=== PATIENT | male | born 1985 | race Caucasian/White ===

== ENCOUNTER 2022-06-19 06:41 | Day surgery (SDC) | payer OTHER ==
[~2022-06-19] VITALS: Ht 188 cm; Wt 100.9 kg
[2022-06-19] MEDS ORDERED: DEXAMETHASONE SOD PHOS 4 MG/ML VIAL IVP ONE (06:42)
[2022-06-19] MEDS ORDERED: ROCURONIUM BROMIDE 10 MG/ML 5 ML VIAL IVP ONE (06:42)
[2022-06-19] MEDS ORDERED: PROPOFOL 1% 20 ML VIAL IVP ONE (06:42)
[2022-06-19] MEDS ORDERED: FentaNYL CITRATE PF 100 MCG/2 ML VIAL IVP ONE (06:42)
[2022-06-19] MEDS ORDERED: ONDANSETRON HCL 4 MG/2 ML VIAL IVP ONE (06:42)
[2022-06-19] MEDS ORDERED: LIDOCAINE/PF 2% 5 ML VIAL IM ONE (06:42)
[2022-06-19] MEDS ORDERED: RINGERS SOLUTION,LACTATED 1,000 ML IV ONE ×2 (07:00→07:41)
[2022-06-19 07:04] LABS: COVID AG,FIA SOURCE NASAL SWAB
[2022-06-19] MEDS ORDERED: AMPICILLIN SODIUM 2 GM/NS 100 ML IV ONE (07:40)
[2022-06-19] MEDS ORDERED: METH-624 PO (08:10)
[2022-06-19] MEDS ORDERED: RISP0.5T61 PO (08:10)
[2022-06-19] MEDS ORDERED: METH18TA PO (08:10)
[2022-06-19] MEDS ORDERED: ARIP15TA PO (08:10)
[2022-06-19] MEDS ORDERED: PROP10TA73 PO (08:10)
[2022-06-19] MEDS ORDERED: LURA60TA PO (08:10)
[2022-06-19] MEDS ORDERED: LAMO100 PO (08:10)
[2022-06-19] MEDS ORDERED: CLON-592 PO (08:10)
[2022-06-19] MEDS ORDERED: OXCA300T57 PO (08:10)
[2022-06-19] MEDS ORDERED: TADA20TA31 PO (08:10)
[2022-06-19] MEDS ORDERED: FLUV50 PO (08:10)
[2022-06-19] MEDS ORDERED: MECL-134 PO (08:10)
[2022-06-19 08:12] LABS: CALCIUM, TOTAL 9.6 mg/dL (8.8-10.5); CREATININE 1.95 mg/dL (0.60-1.30); POTASSIUM 3.8 mmol/L (3.5-5.1)
[2022-06-19 08:18] LABS: ALBUMIN 3.9 g/dL (3.4-5.0); BILIRUBIN,TOTAL 0.2 mg/dL (0.1-1.0); TOTAL PROTEIN, SERUM 7.2 g/dL (6.4-8.2)
[2022-06-19 08:26] LABS: PROTHROMBIN TIME 10.9 SEC (9.4-11.6)
[2022-06-19 08:45] LABS: BASOPHILS % (AUTO) 0.8 % (0.0-2.0); HEMATOCRIT 40.6 % (41-53); HEMOGLOBIN 14.1 g/dL (13.5-17.5); LYMPHOCYTES % (AUTO) 31.6 % (22.0-44.0); MEAN CORPUSCULAR HGB CONC 34.9 G/dL (31.0-37.0); MEAN CORPUSCULAR VOLUME 86 fL (80-100); MONOCYTES # (AUTO) 0.6 K/uL (0.1-1.0); MONOCYTES % (AUTO) 9.9 % (2.0-9.0); NEUTROPHILS # (AUTO) 3.6 K/uL (1.8-7.7); NEUTROPHILS % (AUTO) 55.7 % (40.0-70.0); PLATELET COUNT (AUTO) 211 K/uL (150-450); RED BLOOD CELL COUNT(AUTO) 4.72 MIL/uL (4.50-5.90)
== END 2022-06-19 13:15 | disposition home or self-care (01) ==
LOC: SURGERY 06:41
PROVIDERS: ATTEND Dentist General Practice
DX: K05.30 Chronic periodontitis, unspecified (principal); K03.6 Deposits [accretions] on teeth; I10 Essential (primary) hypertension; F41.9 Anxiety disorder, unspecified; F31.9 Bipolar disorder, unspecified; F84.0 Autistic disorder; F90.9 Attention-deficit hyperactivity disorder, unspecified type; K59.00 Constipation, unspecified; Z79.899 Other long term (current) drug therapy; Z98.890 Other specified postprocedural states; Z79.01 Long term (current) use of anticoagulants; Z20.822 Contact with and (suspected) exposure to COVID-19
CPT/HCPCS: 41899; 71045; 87426; 80053; 85025; 85610; 85730; 36415; 93005; J0290; J2704; J1100; J3010; J3490 ×2; J2405; J7120; C9803